=== PATIENT | male | born 1970 | race Caucasian/White ===

== ENCOUNTER 2016-12-24 17:59 | Emergency (ER) | payer OTHER ==
[~2016-12-24] VITALS: Ht 170.2 cm; Wt 89.0 kg
[2016-12-24 18:00] VITALS: BP 144/92; PULSE 90; RESP 20; TEMP 98.7; O2SAT 98
[2016-12-24 20:56] VITALS: BP 160/105; PULSE 67; RESP 16; O2SAT 99
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
[2016-12-24] MEDS ORDERED: MEDR4PAK PO (21:28)
[2016-12-24] MEDS ORDERED: ALBUAER3 INH (21:28)
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
== END 2016-12-24 21:48 | disposition home or self-care (01) ==
LOC: NEPD 17:59
DX: T59.811A Toxic effect of smoke, accidental (unintentional), initial encounter (principal); J68.0 Bronchitis and pneumonitis due to chemicals, gases, fumes and vapors
CPT/HCPCS: 71010; 99284